=== PATIENT | female | born 1940 | race Caucasian/White ===

== ENCOUNTER 2021-11-26 19:11 | Emergency (ER) | payer OTHER, BC ==
[2021-11-26 19:28] VITALS: BP 179/59; PULSE 78; TEMP 98.1; BMI 21.9
== END 2021-11-26 21:41 | disposition home or self-care (01) ==
LOC: FER 19:11
DX: S82.891A Other fracture of right lower leg, initial encounter for closed fracture (principal)
CPT/HCPCS: 73610-TC-RT-FY; 73630-TC-RT-FY; 99284-25